=== PATIENT | female | born 1985 | race Caucasian/White ===

== ENCOUNTER 2018-10-10 03:41 | Emergency (ER) | payer MEDICAID, OTHER ==
[~2018-10-10] VITALS: Ht 170.2 cm; Wt 63.5 kg
[2018-10-10] MEDS ORDERED: KETOROLAC 30 MG/ML VIAL. IV ONE (04:15)
[2018-10-10] MEDS ORDERED: NAPR-514 PO (05:00)
--- NOTE | 2018-10-10 05:01 | PHYS DOC ---
Past Medical History Past Medical History: No Pertinent History Past Surgical History: , Other Additional Past Surgical Histo: "cyst removed from back" Alcohol Use: None Drug Use: None Adult General Chief Complaint Chief Complaint: SHORTNESS OF BREATH [facility] [place] 33-year-old female who is recently presents with a sharp pain in her chest that radiates to her back. She states this is made much worse with any deep breath. She denies any cough or congestion. She denies hemoptysis. She denies any pain in her legs. She does smoke. She states this just started within the last several hours. She also admits to being extremely anxious about this. She states the pain does make her short of breath.[] Review of Systems Review of Systems Constitutional: Denies fever or chills [] Eyes: Denies change in visual acuity, redness, or eye pain [] HENT: Denies nasal congestion or sore throat [] Respiratory: Per history of present illness[] Cardiovascular: No additional information not addressed in HPI [] GI: Denies abdominal pain, nausea, vomiting, bloody stools or diarrhea [] : Denies dysuria or hematuria [] Musculoskeletal: Denies back pain or joint pain [] Integument: Denies rash or skin lesions [] Neurologic: Denies headache, focal weakness or sensory changes [] Endocrine: Denies polyuria or polydipsia [] All other systems were reviewed and found to be within normal limits, except as documented in this note. Current Medications Current Medications Current Medications Medications (Trade) Dose Ordered Sig/[facility] Start Time Stop Time Status Last Admin Dose Admin Ketorolac Tromethamine (Toradol 30mg Vial) 30 mg 1X ONCE 10/10/18 04:15 10/10/18 04:16 DC 10/10/18 04:32 30 MG Lorazepam (Ativan Inj) 1 mg 1X ONCE 10/10/18 04:15 10/10/18 04:16 DC 10/10/18 04:50 1 MG Allergies Allergies Allergies Coded Allergies Type Severity Reaction Last Updated Verified No Known Drug Allergies 07/23/14 No Physical Exam Physical Exam Constitutional: Well developed, well nourished, no acute distress, non-toxic appearance. [] HENT: Normocephalic, atraumatic, bilateral external ears normal, oropharynx moist, no oral exudates, nose normal. [] Eyes: PERRLA, EOMI, conjunctiva normal, no discharge. [] Neck: Normal range of motion, no tenderness, supple, no stridor. [] Cardiovascular:Heart rate regular rhythm, no murmur [] Lungs & Thorax: Bilateral breath sounds clear to auscultation [] Abdomen: Bowel sounds normal, soft, no tenderness, no masses, no pulsatile masses. [] Skin: Warm, dry, no erythema, no rash. [] Back: No tenderness, no CVA tenderness. [] Extremities: No tenderness, no cyanosis, no clubbing, ROM intact, no edema. [] Neurologic: Alert and oriented X 3, normal motor function, normal sensory function, no focal deficits noted. [] Psychologic: Extremely anxious[] Current Patient Data Vital Signs Vital Signs Date Time Temp Pulse Resp B/P (MAP) Pulse Ox O2 Delivery O2 Flow Rate FiO2 10/10/18 03:41 98.4 60 22 127/73 (91) 98 Room Air 98.4 Lab Values Laboratory Tests Test 10/10/18 03:50 D-Dimer (Ester) < 0.27 ug/mlFEU EKG EKG [] Interpretation Time: EKG: Normal sinus rhythm rate of [address]-T changes Radiology/Procedures Radiology/Procedures [] Impressions: Chest x-ray: Negative exam as interpreted by me Course & Med Decision Making Course & Med Decision Making Pertinent Labs and Imaging studies reviewed. (See chart for details) [ED course: Evaluation reveals a 33-year-old anxious female with pleuritic type chest pain. Certainly the fact that she smokes and is recently she's had a higher risk for blood clot. However, her d-dimer was negative. Her chest x-ray did not show any evidence of pneumothorax. She was given Ativan and Toradol during her stay in the department which did help alleviate her symptoms. Urged her to stop smoking.] Dragon Disclaimer Dragon Disclaimer This electronic medical record was generated, in whole or in part, using a voice recognition dictation system. Departure Departure Impression: Primary Impression: Pleurisy Additional Impression: Anxiety about health Disposition: 01 HOME, SELF-CARE Condition: IMPROVED Referrals: Maryann BOUCHER MD (PCP) Patient Instructions: Pleurisy Additional Instructions: Follow with Dr. Boucher this week for recheck. Return to the emergency department with any new or concerning symptoms Scripts Naproxen (NAPROXEN) 500 Mg Tablet 1 TAB PO BID PRN for PAIN, #30 TAB 1 Refill Prov: FARNAZ HESTER DO 10/10/18 Problem Qualifiers FARNAZ HESTER DO Oct 10, 2018 05:01
[2018-10-10 05:08] VITALS: BP 105/60
--- NOTE | 2018-10-10 06:36 | RAD ---
Chest AP portable at 0343: Reason for examination: Chest pain. The heart size is normal. Mediastinum is unremarkable. Lung yusuf are clear. No acute bony abnormalities are seen. Impression: No acute cardiopulmonary disease. Electronically signed by: Kyra Ramirez MD (10/10/2018 6:33 AM) [facility] [id number]
--- NOTE | 2018-10-10 07:06 | EKG ---
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
== END 2018-10-10 05:09 | disposition home or self-care (01) ==
LOC: ER 03:41
DX: O99.53 Diseases of the respiratory system complicating the puerperium (principal); R09.1 Pleurisy; O99.345 Other mental disorders complicating the puerperium; F41.9 Anxiety disorder, unspecified; Z98.890 Other specified postprocedural states
CPT/HCPCS: 36415; 71045; 85379; 93005; 96374; 96375; 99285; J1885; J2060